=== PATIENT | female | born 1990 ===

== ENCOUNTER 2018-11-21 18:55 | Emergency (ER) | payer MEDICAID ==
[2018-11-21] MEDS ORDERED: TYLENOL PO ONE (20:20)
--- NOTE | 2018-11-21 21:04 | Emergency Department Report ---
ED Lower Extremity HPI - General Chief Complaint: Extremity Injury, Lower Stated Complaint: 29WKS RT ANKLE INJURY Source: patient Mode of arrival: Ambulatory Limitations: No Limitations - History of Present Illness Initial Comments: This is a 28-year-old female that presents to the emergency room with right ankle pain and swelling. The patient reports she is 29 weeks . She fell earlier today around 1300 and broke fall with hands out and landing onto knees. She reports right ankle twisted inward causing inversion. She was able to stand and walk after incident. She reports pain and swelling started around 1700 and increased since. Patient states she is able to apply weight which caused worsening pain. She denies dizziness, vaginal bleeding, hitting her abdomen or head. MD Complaint: ankle injury (right) Onset/Timin -: hour(s) Time: 17:00 Injury: Ankle: Right (swelling and pain) Type of Injury: inversion Place: street/outdoors Severity: moderate Severity scale (0 -10): 8 Improves With: nothing Worsens With: weight bearing, movement Context: fall Associated Symptoms: swelling, able to partially bear weight, ambulatory. denies: snap/pop sensation, numbness, tingling - Related Data Previous Rx's Medication Instructions Recorded Last Taken Type Acetaminophen [Acetaminophen TAB] 500 mg PO Q6HR PRN #20 tablet 11/21/18 Unknown Rx Allergies Allergy/AdvReac Type Severity Reaction Status Date / Time No Known Allergies Allergy Unverified 11/21/18 18:58 ED Review of Systems ROS: Stated complaint: 29WKS RT ANKLE INJURY Other details as noted in HPI Constitutional: denies: chills, fever Respiratory: denies: cough, shortness of breath, wheezing Cardiovascular: denies: chest pain, palpitations Gastrointestinal: denies: abdominal pain, nausea, diarrhea Musculoskeletal: joint swelling (rightn ankle), arthralgia (right ankle). denies: back pain Skin: denies: rash, lesions Neurological: denies: headache, weakness, paresthesias Psychiatric: denies: anxiety, depression ED Past Medical Hx - Past Medical History Previous Medical History?: No - Surgical History Past Surgical History?: No - Social History Smoking Status: Never Smoker Substance Use Type: None - Medications Home Medications: Home Medications Medication Instructions Recorded Confirmed Last Taken Type Acetaminophen [Acetaminophen TAB] 500 mg PO Q6HR PRN #20 tablet 11/21/18 Unknown Rx ED Physical Exam - General Limitations: No Limitations General appearance: alert, in no apparent distress, obese - Respiratory Respiratory exam: Present: normal lung sounds bilaterally. Absent: respiratory distress - Cardiovascular Cardiovascular Exam: Present: regular rate, normal rhythm. Absent: systolic murmur, diastolic murmur, rubs, gallop - GI/Abdominal GI/Abdominal exam: Present: soft, normal bowel sounds. Absent: tenderness - Expanded Lower Extremity Exam Right Knee exam: Present: full ROM, abrasion, full knee extension. Absent: tenderness, swelling, laceration, ecchymosis, deformity, crepidus, dislocation, erythema, effusion, pain w/ pronation/supination, posterior draw sign, pain/laxity with valgus, pain/laxity with varus Lower Leg exam: Present: normal inspection, full ROM Ankle exam: Present: tenderness (lateral malleolus), swelling (lateral malleolus). Absent: full ROM (limited ROM secondary pain), abrasion, laceration, ecchymosis, deformity, crepidus, dislocation, erythema, anterior draw sign Foot/Toe exam: Present: normal inspection, full ROM Neuro vascular tendon exam: Present: no vascular compromise Gait: Positive: observed and limited by pain - Neurological Exam Neurological exam: Present: alert, oriented X3 - Psychiatric Psychiatric exam: Present: normal affect, normal mood - Skin Skin exam: Present: warm, dry, intact, normal color. Absent: rash ED Course Vital Signs 11/21/18 11/21/18 19:54 20:35 Temperature 97.7 F Pulse Rate 91 H Respiratory 18 16 Rate Blood Pressure 114/78 O2 Sat by Pulse 98 Oximetry ED Lower Extremity MDM - Medical Decision Making Patient was examined by me. Vitals are normal and patient is in no acute distress. Swelling and tenderness to lateral malleolus with limited range of motion secondary pain. No obvious deformity. Denies hitting abdomen, head, and vaginal bleeding. X-ray of ankle deferred patient is 29 weeks gestation. Will treat as sprain with RICE therapy. An ankle stirrup applied to right ankle. Instructed to follow up with a PCP in 2-3 days or return to the ER with worsening symptoms. Patient informed of results. Start tylenol for pain. Plan discussed with patient to discharge home and treat outpatient. Patient discharged home in stable condition. Follow up with PCP in 2-3 days. Critical care attestation.: If time is entered above; I have spent that time in minutes in the direct care of this critically ill patient, excluding procedure time. ED Disposition Clinical Impression: Acute right ankle pain Fall Qualifiers: Encounter type: initial encounter Qualified Code(s): W19.XXXA - Unspecified fall, initial encounter Sprain of ankle, right Qualifiers: Encounter type: initial encounter Involved ligament of ankle: anterior talofibular ligament Qualified Code(s): S93.491A - Sprain of other ligament of right ankle, initial encounter Disposition: TO HOME OR SELFCARE Is pt being admited?: No Does the pt Need Aspirin: No Condition: Stable Instructions: Ankle Sprain (ED), Ankle Stirrup Splint (ED), Ankle Exercises (GEN), Arthralgia (ED) Additional Instructions: Rest Use ice or heat on affected area for 20 minutes and off for 2 hours. Take Tylenol every 6 hours as needed for pain. Follow up with Primary Care Provider or [facility] in 3-5 days. Prescriptions: Acetaminophen [Acetaminophen TAB] 500 mg PO Q6HR PRN #20 tablet PRN Reason: Pain , Severe (7-10) Referrals: [facility] [Provider Group] - 3-5 Days [facility] [Outside] - 3-5 Days [facility] [Outside] - 3-5 Days Forms: Work/School Release Form(ED), Accompanied Note Time of Disposition: 21:16
[2018-11-21 21:32] VITALS: BP 112/67
== END 2018-11-21 21:20 | disposition home or self-care (01) ==
LOC: ED 18:55
DX: O9A.213 Injury, poisoning and certain other consequences of external causes complicating pregnancy, third trimester (principal); S93.401A Sprain of unspecified ligament of right ankle, initial encounter; Z3A.29 29 weeks gestation of pregnancy; W18.39XA Other fall on same level, initial encounter; Y93.89 Activity, other specified; Y92.89 Other specified places as the place of occurrence of the external cause; Y99.8 Other external cause status
CPT/HCPCS: 99282